=== PATIENT | female | born 1965 | race Caucasian/White ===

== ENCOUNTER → 2020-10-06 | Outpatient (CLI) | payer BC | LOC: US 08:38 | PROVIDERS: ATTEND Family Medicine | DX: N95.0 Postmenopausal bleeding (principal) | CPT/HCPCS: 76830 ==

== ENCOUNTER → 2021-03-29 | Outpatient (CLI) | payer BC | LOC: MRI 14:50 | PROVIDERS: ATTEND Family Medicine | DX: M25.561 Pain in right knee (principal) ==

== ENCOUNTER → 2021-04-19 | Day surgery (SDC) | payer BC, OTHER ==
[~2021-04-19] MED LIST: ACETAMINOPHEN 1000 MG/100 ML 100 ML IV ONE; CYMBALTA20 MG PO; DICLOFENAC35 MG PO; ESTRADIOL0.5 MG PO; FAMOTIDINE 20 MG/2 ML VIAL IV ONE; MEPERIDINE HCL INJ 25 MG/ML VIAL ONE; PROVERA5 MG PO; SODIUM CHLORIDE 0.9% 50ML 50 ML ONE; VITAMIN D250 MCG PO
[2021-04-19 09:00] VITALS: BP 134/98
== END | disposition home or self-care (01) ==
LOC: OR 05:29
PROVIDERS: ATTEND Specialist
DX: S83.231A Complex tear of medial meniscus, current injury, right knee, initial encounter (principal); M22.41 Chondromalacia patellae, right knee; S83.271A Complex tear of lateral meniscus, current injury, right knee, initial encounter; M17.5 Other unilateral secondary osteoarthritis of knee; Z01.810 Encounter for preprocedural cardiovascular examination; Z01.812 Encounter for preprocedural laboratory examination; Z01.818 Encounter for other preprocedural examination; Z20.822 Contact with and (suspected) exposure to COVID-19; F41.9 Anxiety disorder, unspecified; F32.9 Major depressive disorder, single episode, unspecified; F17.200 Nicotine dependence, unspecified, uncomplicated
CPT/HCPCS: 29880; 71046; 81025; 93005; J0131; J0690; J2175; U0002